=== PATIENT | female | born 1940 | race Caucasian/White ===

== ENCOUNTER 2025-01-14 18:07 | Inpatient (IN) | payer MEDICARE, OTHER ==
[2025-01-14 21:45] VITALS: BP 159/59; TEMP 97.7; O2SAT 93
[2025-01-14 22:00] VITALS: BP 186/84; O2SAT 95
[2025-01-14 23:00] VITALS: BP 182/72; O2SAT 97
[2025-01-14] MEDS ORDERED: DEXTROSE 50%-WATER 50 ML DISP.SYRIN IV PRN (23:30)
[2025-01-14] MEDS ORDERED: ACETAMINOPHEN 325 MG TABLET PO PRN (23:30)
[2025-01-14] MEDS ORDERED: Z GUARD REMEDY 4 OZ OINT TP PRN (23:30)
[2025-01-14] MEDS ORDERED: ONDANSETRON HCL/PF 4 MG/2 ML VIAL IVP PRN (23:30)
[2025-01-14] MEDS: METOPROLOL SUCCINATE 25 MG TAB.SR.24H PO SCH (23:58)
[2025-01-15] VITALS (15 sets, daily range): BP systolic 143–168; BP diastolic 56–94; TEMP 97.5–98.4; O2SAT 94–97
[2025-01-15] MEDS: hydrALAZINE HCL IV 20 MG VIAL IV PRN (02:49)
[2025-01-15 04:48] LABS: BASOPHILS % (AUTO) 0.3 % (0.0-2.0); EOSINOPHILS # (AUTO) 0.1 K/uL (0.0-0.7); EOSINOPHILS % (AUTO) 0.6 % (0.0-6.0); HEMATOCRIT 35 % (39-51); HEMOGLOBIN 11.7 g/dL (13.5-17.5); LYMPHOCYTES # (AUTO) 1.3 K/uL (0.8-4.8); LYMPHOCYTES % (AUTO) 13.8 % (20.0-44.0); MEAN CORPUSCULAR HEMOGLOBIN 26 PG (26.0-33.0); MEAN CORPUSCULAR HGB CONC 34 g/dl (31.0-36.0); MEAN CORPUSCULAR VOLUME 78 fL (80-96); MONOCYTES # (AUTO) 0.4 K/uL (0.1-1.30); MONOCYTES % (AUTO) 4.1 % (2.0-12.0); NEUTROPHILS # (AUTO) 7.8 K/uL (1.8-8.9); NEUTROPHILS % (AUTO) 81.2 % (43.0-81.0); PLATELET COUNT (AUTO) 256 K/uL (150-450); RED BLOOD CELL COUNT(AUTO) 4.46 MIL/uL (4.5-6.0); WHITE BLOOD COUNT (AUTO) 9.5 K/uL (4.3-11.0)
[2025-01-15 05:01] LABS: CALCIUM, SERUM 8.5 mg/dL (8.5-10.1); CREATININE 0.6 mg/dL (0.6-1.3); MAGNESIUM 1.9 mg/dL (1.8-2.4); PHOSPHORUS 3.4 mg/dL (2.5-4.9)
[2025-01-15 05:10] LABS: THYROID STIMULATING HORMONE 3.86 uIU/mL (0.358-3.74)
[2025-01-15] MEDS: ASPIRIN EC 81 MG TABLET.DR PO SCH (08:11)
[2025-01-15] MEDS: AMLODIPINE BESYLATE 10 MG TABLET PO SCH (08:11)
[2025-01-15] MEDS: PANTOPRAZOLE 40 MG TABLET.DR PO SCH (08:11)
[2025-01-15] MEDS: BLOOD SUGAR DIAGNOSTIC 1 EACH STRIP IN SCH (08:11)
[2025-01-15] MEDS: POTASSIUM CHLORIDE 20 MEQ TAB.PRT.SR PO SCH (08:11)
[2025-01-15] MEDS: CLOPIDOGREL BISULFATE 75 MG TABLET PO SCH (08:11)
[2025-01-15] MEDS: INSULIN REGULAR, HUMAN 100 UNIT/ML 3 ML VIAL SQ PRN (08:13)
[2025-01-15] MEDS ORDERED: ATOR80TA PO (08:54)
[2025-01-15] MEDS ORDERED: OMEP40CA21 PO (08:54)
[2025-01-15] MEDS ORDERED: AMLO-213 PO (08:54)
[2025-01-15] MEDS ORDERED: CLOP75TA15 PO (08:54)
[2025-01-15] MEDS ORDERED: LOSA1TAB42 PO (08:54)
[2025-01-15] MEDS ORDERED: SERT25TA5 PO (08:54)
[2025-01-15] MEDS ORDERED: METO25TA4 PO (08:54)
[2025-01-15] MEDS ORDERED: GABA-532 PO (08:54)
[2025-01-15 09:33] LABS: THYROID STIMULATING HORMONE 3.57 uIU/mL (0.358-3.74)
[2025-01-15] MEDS: ATORVASTATIN 40 MG TABLET PO SCH (22:03)
[2025-01-16] VITALS: BP 173/59; TEMP 98.2; O2SAT 96
[2025-01-16 04:00] VITALS: BP 161/61; TEMP 97.7; O2SAT 97
[2025-01-16 07:08] LABS: BASOPHILS % (AUTO) 0.2 % (0.0-2.0); EOSINOPHILS # (AUTO) 0.1 K/uL (0.0-0.7); EOSINOPHILS % (AUTO) 1.2 % (0.0-6.0); HEMATOCRIT 35 % (33-45); HEMOGLOBIN 11.5 g/dL (11.5-14.8); LYMPHOCYTES # (AUTO) 1.8 K/uL (0.8-4.8); LYMPHOCYTES % (AUTO) 29.5 % (20.0-44.0); MEAN CORPUSCULAR HEMOGLOBIN 26 PG (26.0-33.0); MEAN CORPUSCULAR HGB CONC 33 g/dl (31.0-36.0); MEAN CORPUSCULAR VOLUME 78 fL (82-100); MONOCYTES # (AUTO) 0.3 K/uL (0.1-1.30); MONOCYTES % (AUTO) 4.6 % (2.0-12.0); NEUTROPHILS # (AUTO) 3.9 K/uL (1.8-8.9); NEUTROPHILS % (AUTO) 64.5 % (43.0-81.0); PLATELET COUNT (AUTO) 257 K/uL (150-450); RED BLOOD CELL COUNT(AUTO) 4.51 MIL/uL (4.0-5.2); RED CELL DISTRIBUTION WIDTH 15.7 % (11.5-15.0); WHITE BLOOD COUNT (AUTO) 6.1 K/uL (4.3-11.0)
[2025-01-16 08:00] VITALS: BP 178/63; TEMP 97.5; O2SAT 97
[2025-01-16 08:33] LABS: CALCIUM, SERUM 8.5 mg/dL (8.5-10.1); CREATININE 0.5 mg/dL (0.6-1.3); POTASSIUM 3.6 mmol/L (3.5-5.1)
[2025-01-16] MEDS: LISINOPRIL (10MG) 10 MG TABLET PO SCH (09:01)
[2025-01-16 12:00] VITALS: BP 150/56; TEMP 98.2; O2SAT 97
[2025-01-16 16:00] VITALS: BP 156/67; TEMP 98; O2SAT 95
[2025-01-16 20:00] VITALS: BP 151/62; TEMP 98.6; O2SAT 95
[2025-01-17] VITALS: BP 146/69; TEMP 98.4; O2SAT 97
[2025-01-17 04:00] VITALS: BP 146/67; TEMP 97.9; O2SAT 96
[2025-01-17 08:00] VITALS: BP 148/83; TEMP 97.5; O2SAT 96
[2025-01-17] MEDS ORDERED: METO50TA16 PO (11:11)
[2025-01-17] MEDS ORDERED: CLONIDINE HCL 0.1 MG TABLET PO PRN (11:30)
[2025-01-17 12:00] VITALS: BP 135/74; TEMP 97.6; O2SAT 98
[2025-01-17 12:05] VITALS: BP 176/77
[2025-01-20 18:09] LABS: RENIN, PLASMA 0.683 ng/mL/hr (.)
== END 2025-01-17 14:05 | disposition home health service (06) | DRG 281 ==
LOC: EDSEX 21:11 → ICU 21:11 → TELE1 01-15 12:25
PROVIDERS: ADMIT Nurse Practitioner Family; ATTEND Internal Medicine
DX: I16.1 Hypertensive emergency (principal); G45.9 Transient cerebral ischemic attack, unspecified; I21.A1 Myocardial infarction type 2; I69.351 Hemiplegia and hemiparesis following cerebral infarction affecting right dominant side; I10 Essential (primary) hypertension; E11.9 Type 2 diabetes mellitus without complications; I25.10 Atherosclerotic heart disease of native coronary artery without angina pectoris; E03.9 Hypothyroidism, unspecified; D64.9 Anemia, unspecified; E78.5 Hyperlipidemia, unspecified; E87.6 Hypokalemia; Z79.4 Long term (current) use of insulin; F32.9 Major depressive disorder, single episode, unspecified; Z51.5 Encounter for palliative care; Z66 Do not resuscitate; I70.0 Atherosclerosis of aorta
CPT/HCPCS: 36415; 71045-TC; 80048-TC; 80061-TC; 82088; 83735-TC; 84100-TC; 84244; 84439-TC; 84443-TC; 84484-TC; 85025-TC; 92526; 92611-TC; 93307-TC; 97110-TC; 97112-TC; 97530-TC; 97535-TC; G0378; J0360; J1815